=== PATIENT | female | born 2000 | race Caucasian/White ===

== ENCOUNTER 2020-01-10 21:14 | Emergency (ER) | payer OTHER ==
[2020-01-11] MEDS ORDERED: NORMAL SALINE 1000 ML 1,000 ML IV ONE (00:32)
--- NOTE | 2020-01-11 00:35 | ER Document Report ---
ED General - General Chief Complaint: Swelling of Lower Extremity Stated Complaint: LOWER EXTREMITY PAIN/SWELLING Time Seen by Provider: 01/11/20 00:24 Notes: Patient is a 19-year-old female that comes to the emergency department for chief complaint of pain that started along her buttocks and into the top of her proximal thighs (she points), this was equal, started earlier today. She states that she started feeling pains and soreness radiating down her legs equally as well. She denies numbness or weakness, denies any symptoms in her upper extremities or upper body. She denies headache, shortness of breath, chest pain, abdominal pain. However she has had an intermittent sore throat and swollen lymph nodes, she states she thought it was allergies but because has been going on for some time. She takes no daily medications, denies any surgeries, denies , denies any diagnosed medical history. - Related Data Allergies/Adverse Reactions: Penicillins Allergy (Verified 01/10/20 21:30) Past Medical History - General Information source: Patient - Social History Smoking Status: Current Every Day Smoker Frequency of alcohol use: None Drug Abuse: None Lives with: Family Family History: Reviewed & Not Pertinent Patient has homicidal ideation: No - Medical History Medical History: Negative Surgical Hx: Negative - Immunizations Immunizations up to date: Yes Hx Diphtheria, Pertussis, Tetanus Vaccination: Yes Review of Systems - Review of Systems Constitutional: See HPI EENT: See HPI Cardiovascular: No symptoms reported Respiratory: No symptoms reported Gastrointestinal: No symptoms reported Genitourinary: No symptoms reported Female Genitourinary: No symptoms reported Musculoskeletal: See HPI Skin: No symptoms reported Hematologic/Lymphatic: No symptoms reported Neurological/Psychological: No symptoms reported Physical Exam - Vital signs Vitals: Temp Pulse Resp BP Pulse Ox 99.0 F 102 H 13 121/77 98 01/10/20 21:19 01/10/20 21:19 01/10/20 21:19 01/10/20 21:19 01/10/20 21:19 - Notes Notes: GENERAL: Alert, interacts well. No acute distress. HEAD: Normocephalic, atraumatic. EYES: Pupils equal, round, and reactive to light. Extraocular movements intact. ENT: Oral mucosa moist, tongue midline. Oropharynx with mild erythema but no significant tonsillar hypertrophy, uvula is unremarkable, airway patent, otherwise unremarkable. Nares patent, sinuses non-tender, ear canals unremarkable, TM's intact. NECK: Full range of motion. Supple. Trachea midline. Bilateral mild anterior cervical adenopathy, no submandibular swelling. LUNGS: Clear to auscultation bilaterally, no wheezes, rales, or rhonchi. No respiratory distress. Non-tender chest wall. HEART: Regular rate and rhythm. No murmur ABDOMEN: Soft, non-tender. Non-distended. Bowel sounds present in all 4 quadrants. GENITOURINARY: Deferred EXTREMITIES: Moves all 4 extremities spontaneously. There is pain with palpation over the anterior thighs, this is very mild, there is no swelling, discoloration, or significant tenderness. Similar evaluation with a cast. No swelling or pitting edema noted, normal radial and dorsalis pedis pulses bilaterally. No cyanosis. BACK: no cervical, thoracic, lumbar midline tenderness. No saddle anesthesia, normal distal neurovascular exam. Moves all extremities in full range of motion. NEUROLOGICAL: Alert and oriented x3. Normal speech. Cranial nerves II through X II grossly intact. Strength 5/5 in all extremities. PSYCH: Normal affect, normal mood. SKIN: Warm, dry, normal turgor. No rashes or lesions noted. Course - Re-evaluation Re-evalutation: Patient is smiling, alert, well-appearing. She has mild erythema of the posterior pharynx and mild anterior cervical adenopathy, she also has some tenderness with palpation over the muscles of the thighs and calves, however she has no neurological deficits, she has no paralysis, she is able to ambulate without difficulty and only has symptoms of pain with movement. She has no abnormality noted with the back, her evaluation is otherwise unremarkable. CBC unremarkable, chemistry unremarkable, CK is not elevated, urinalysis shows some dehydration but is otherwise unremarkable. Patient was rehydrated. Strep is negative. I do not suspect Guillain-Archer, patient does not have a sending paralysis, patient is not have headache or nuchal rigidity, patient is well- appearing. Patient does not have any risk factors and does not have fever or any respiratory symptoms, discussed this, low suspicion of COVID-19. I do suspect this is viral however, patient was treated with dexamethasone, Toradol, anti-inflammatories after discussion, discussed follow-up and return precautions in detail. Patient states understanding and agreement with plan. Stable and well-appearing at time of discharge. - Vital Signs Vital signs: Temp Pulse Resp BP Pulse Ox 98.7 F 90 18 109/56 L 98 01/11/20 02:17 01/11/20 02:17 01/11/20 02:17 01/11/20 02:17 01/11/20 02:17 - Laboratory Result Diagrams: 01/11/20 00:43 01/11/20 00:43 Laboratory results interpreted by me: 01/11/20 00:43 WBC 10.9 H Discharge - Discharge Clinical Impression: Anterior cervical adenopathy Leg pain Qualifiers: Laterality: bilateral Qualified Code(s): M79.604 - Pain in right leg Pharyngitis Qualifiers: Pharyngitis/tonsillitis etiology: unspecified etiology Qualified Code(s): J02.9 - Acute pharyngitis, unspecified Condition: Stable Disposition: HOME, SELF-CARE Additional Instructions: Your strep is negative. Your work-up is reassuring. I do suspect that you are fighting a viral illness and have associated body aches, is also possible that you are having a mild immune response as we discussed. You have been treated for this. Rest, drink plenty of fluids, take the anti-inflammatory as prescribed. Symptoms should simply resolve with time. Follow-up with primary care. Return if you worsen including difficulty breathing, developing numbness, spiking fevers, vomiting, or any other concerning or worsening symptoms. Prescriptions: Naproxen 500 mg PO BID PRN #20 tablet PRN Reason: Forms: Return to Work
[2020-01-11 00:55] LABS: APPEARANCE,URINE CLEAR; BILIRUBIN,URINE NEGATIVE (NEGATIVE); COLOR,URINE YELLOW; GLUCOSE, URINE NEGATIVE (NEGATIVE); KETONES,URINE NEGATIVE (NEGATIVE); LEUKOCYTE ESTERASE,URINE NEGATIVE (NEGATIVE); NITRITE,URINE NEGATIVE (NEGATIVE); PROTEIN,URINE NEGATIVE (NEGATIVE); UROBILINOGEN,URINE NEGATIVE mg/dL (<2.0)
[2020-01-11 01:02] LABS: ABSOLUTE BASOPHILS # (AUTO) 0.2 10^3/uL (0.0-0.2); ABSOLUTE EOSINOPHILS # (AUTO) 0.3 10^3/uL (0.0-0.6); ABSOLUTE LYMPHOCYTES (AUTO) 4.1 10^3/uL (0.5-4.7); ABSOLUTE MONOCYTES (AUTO) 0.9 10^3/uL (0.1-1.4); ABSOLUTE NEUT (AUTO) 5.5 10^3/uL (1.7-8.2); BASOPHILS % (AUTO) 1.4 % (0-2); EOSINOPHILS % (AUTO) 2.4 % (0-6); HEMATOCRIT 42.7 % (36.0-47.0); HEMOGLOBIN 14.7 g/dL (12.0-15.5); LYMPHOCYTES % (AUTO) 37.9 % (13-45); MEAN CORPUSCULAR HEMOGLOBIN 29.7 pg (27.0-33.4); MEAN CORPUSCULAR HGB CONC 34.4 g/dL (32.0-36.0); MEAN CORPUSCULAR VOLUME 86 fl (80-97); MONOCYTES % (AUTO) 8.2 % (3-13); PLATELET COUNT 427 10^3/uL (150-450); RED BLOOD COUNT 4.95 10^6/uL (3.72-5.28); RED CELL DISTRIBUTION WIDTH 12.9 % (11.5-14.0); SEGMENTED NEUTROPHILS % (AUTO) 50.1 % (42-78); TOTAL CELLS COUNTED % (AUTO) 100 %; WHITE BLOOD COUNT 10.9 10^3/uL (4.0-10.5)
[2020-01-11 01:20] LABS: ALBUMIN 4.5 g/dL (3.7-5.6); ALKALINE PHOSPHATASE 51 U/L (50-135); ANION GAP 8 (5-19); ASPARTATE AMINO TRANSFERASE 27 U/L (5-30); BILIRUBIN,TOTAL 1.1 mg/dL (0.2-1.3); BLOOD UREA NITROGEN 12 mg/dL (7-20); CALCIUM 9.8 mg/dL (8.4-10.2); CARBON DIOXIDE 26 mmol/L (22-30); CHLORIDE 103 mmol/L (98-107); CREATINE KINASE 69 U/L (30-135); GLUCOSE 98 mg/dL (75-110); POTASSIUM 4.7 mmol/L (3.6-5.0); TOTAL PROTEIN 7.8 g/dL (6.3-8.2)
[2020-01-11] MEDS ORDERED: DEXAMETHASONE SOD PHOS INJ 10 MG/1 ML VIAL IV ONE (01:54)
[2020-01-11] MEDS ORDERED: KETOROLAC TROMETHAMINE INJ/PF 30 MG/1 ML SDV IV ONE (01:54)
[2020-01-11 02:18] VITALS: BP 109/56
== END 2020-01-11 02:18 | disposition home or self-care (01) ==
LOC: ER 21:14
DX: J02.9 Acute pharyngitis, unspecified (principal); M79.604 Pain in right leg; M79.89 Other specified soft tissue disorders; F17.200 Nicotine dependence, unspecified, uncomplicated; Z88.0 Allergy status to penicillin
CPT/HCPCS: 99283; 96361; 96374; 96375; 36415; 87070; 87880; 82550; 85025; 81025; 80053; 81001; J1885; J7030; J1100